=== PATIENT | male | born 1950 | race Hispanic/Latino ===

== ENCOUNTER → 2021-02-14 | Outpatient (CLI) | payer OTHER | END | disposition home or self-care (01) | LOC: RAH 11:34 | PROVIDERS: ATTEND Urology | DX: N20.0 Calculus of kidney (principal); Z93.6 Other artificial openings of urinary tract status | CPT/HCPCS: 74018; 76100 ==

== ENCOUNTER → 2021-03-09 | Outpatient (CLI) | payer OTHER | END | disposition home or self-care (01) | LOC: RAH 16:41 | PROVIDERS: ATTEND Urology | DX: N20.2 Calculus of kidney with calculus of ureter (principal) | CPT/HCPCS: 74018 ==